=== PATIENT | female | born 1970 | race Caucasian/White ===

== ENCOUNTER → 2019-11-09 | Emergency (ER) | payer MEDICAID, OTHER ==
[~2019-11-09] MED LIST: CEPHALEXIN500 MG ORAL; Cephalexin 500mg cap ONE; LIDODERM700 M1 TOPIC; MIRTAZAPINE45 MG ORAL; NITROFURANTOIN100 M2 ORAL; ROBAXIN-750750 MG PO; VISTARIL50 MG ORAL
--- NOTE | 2019-11-10 06:21 | Emergency Room Report ---
History of Present Illness General Chief Complaint: skin infection Source: Patient Present Illness HPI Patient presents with complaints of redness to the left hip area patient reports that she injects heroin And noticed the area was becoming more red and tender to touch Denies any fevers or chills denies any cough denies any chest pain or shortness of breath denies any vomiting or diarrhea Allergies: Uncoded Allergies: SULFA (Allergy, Unknown, 09/06/19) Patient History Past Medical History: see triage record Reviewed Nursing Documentation: PMH: Agreed; PSxH: Agreed Review of Systems All Other Systems: negative except mentioned in HPI Physical Exam 98% RA Sp02 EP Interpretation: reviewed, normal General Appearance: well appearing, no apparent distress Head: normocephalic, atraumatic Eyes: bilateral eye PERRL, bilateral eye EOMI ENT: normal ENT inspection, hearing grossly normal, EOM grossly intact Neck: full range of motion, supple Respiratory: lungs clear, no retraction Cardiovascular #1: regular rate, rhythm Gastrointestinal: non tender, soft Genitourinary: no CVA tenderness Musculoskeletal: normal inspection Neurologic: alert, oriented x3 Skin: other - Area of approximately 1 x 2 cm erythema just above the left iliac crest consistent with early cellulitis no obvious fluctuance Lymphatic: no adenopathy Medical Decision Making Diagnostic Impression: Primary Impression: Abdominal wall cellulitis ER Course The area in question appears to be consistent with cellulitis other differential such as abscess or fistula are entertained,, Patient has antibiotics initiated And is stable for initial conservative outpatient trial Status: improved Disposition: HOME, SELF-CARE Condition: Improved Additional Instructions: Patient is provided with the discharge instructions notified to follow up with primary doctor in the next 2-3 days otherwise return to the er with any worsening symptoms. Please note that this report is being documented using [employer] technology. This can lead to erroneous entry secondary to incorrect interpretation by the dictating instrument. Pricila Ramos DO Nov 10, 2019 06:21
--- NOTE | 2019-11-10 06:50 | NUR ---
see downtime chart
== END | disposition home or self-care (01) ==
LOC: EMR 23:06
DX: L03.311 Cellulitis of abdominal wall (principal); Z88.2 Allergy status to sulfonamides
CPT/HCPCS: 99282

== ENCOUNTER 2019-11-14 18:27 | Emergency (ER) | payer OTHER ==
[~2019-11-14] VITALS: Ht 162.6 cm; Wt 49.9 kg
[~2019-11-14 18:27] MED LIST changes: -Cephalexin 500mg cap ONE
--- NOTE | 2019-11-14 18:27 | NUR ---
ED Nurse Note: Pt walke din for medication refill of antibiotic for her abscess on left upper buttock. Noted redness and bump but no drainage. AAOx4 and ambulatory.
[2019-11-14 18:33] VITALS: BP 140/78
[2019-11-14] MEDS ORDERED: CEPHALEXIN500 MG ORAL (18:45)
--- NOTE | 2019-11-14 18:45 | Emergency Room Report ---
History of Present Illness General Chief Complaint: Medication Refill Source: Patient Present Illness HPI 49-year-old female presents to the emergency department requesting medication change. Patient was seen here in the emergency department several days ago for abdominal cellulitis/abscess after skin popping. Patient states that the medication she was prescribed was not covered by her insurance and was too expensive for her to purchase. Patient denies fevers or chills. Patient denies significant progression of her symptoms. She reports 5/10 in severity tenderness, swelling and erythema to the left lateral aspect of the abdomen. She denies any other aggravating or relieving factors at this time. Allergies: Uncoded Allergies: SULFA (Allergy, Unknown, 09/06/19) COVID-19 Screening Contact w/high risk pt: No Recent Travel to affected area: No Experienced COVID-19 symptoms?: No Patient History Past Medical History: see triage record Past Surgical History: none Pertinent Family History: none Last Menstrual Period: 11/08/19 Now: No Reviewed Nursing Documentation: PMH: Agreed; PSxH: Agreed Nursing Documentation-PMH Past Medical History: No History, Except For Review of Systems All Other Systems: negative except mentioned in HPI Physical Exam Vital Signs Date Time Temp Pulse Resp B/P (MAP) Pulse Ox O2 Delivery O2 Flow Rate FiO2 11/14/19 18:33 98.1 73 16 140/78 95 Room Air Sp02 EP Interpretation: reviewed, normal General Appearance: no apparent distress, alert, GCS 15, non-toxic Head: normocephalic, atraumatic Eyes: bilateral eye normal inspection, bilateral eye PERRL ENT: hearing grossly normal, normal voice Neck: full range of motion Respiratory: lungs clear, normal breath sounds, speaking full sentences Cardiovascular #1: regular rate, rhythm Gastrointestinal: non tender, soft, other - 2cm area of erythema and induration on the left anterior abdomen. No palpable fluctuance. mild warmth. Musculoskeletal: normal range of motion, gait/station normal, non-tender Neurologic: alert, motor strength/tone normal, oriented x3, sensory intact, responsive, speech normal Psychiatric: judgement/insight normal Skin: other - 2cm area of erythema and induration on the left anterior abdomen. No palpable fluctuance. mild warmth. Lymphatic: no adenopathy Medical Decision Making PA Attestation Dr. Ramos is my supervising Physician whom patient management has been discussed with. Diagnostic Impression: Primary Impression: Encounter for medication refill Additional Impression: Abdominal wall cellulitis ER Course 49-year-old female presents to the emergency department requesting medication change. Patient was seen here in the emergency department several days ago for abdominal cellulitis/abscess after skin popping. Patient states that the medication she was prescribed was not covered by her insurance and was too expensive for her to purchase. Patient denies fevers or chills. Patient denies significant progression of her symptoms. She reports 5/10 in severity tenderness, swelling and erythema to the left lateral aspect of the abdomen. She denies any other aggravating or relieving factors at this time. Ddx considered but are not limited to: drug seeking, OD, Cellulitis, abscess, sepsis just to name a few. Vital signs: are WNL, pt. is afebrile H&PE are most consistent with need for medication change of antibiotic for her recently evaluated ST cellulitis. ORDERS: none required at this time, the diagnosis is clinical ED INTERVENTIONS: None required at this time. DISCHARGE: At this time pt. is stable for d/c to home. Will provide printed patient care instructions, and any necessary prescriptions. Care plan and follow up instructions have been discussed with the patient prior to discharge. Last Vital Signs Date Time Temp Pulse Resp B/P (MAP) Pulse Ox O2 Delivery O2 Flow Rate FiO2 11/14/19 18:33 98.1 73 16 140/78 (98) 95 Room Air Disposition: HOME, SELF-CARE Condition: Stable Scripts Cephalexin* (KEFLEX*) 500 Mg Capsule 500 MG ORAL EVERY 12 HOURS, #14 CAP 0 Refills Prov: Jessica Hinojosa 11/14/19 Patient Instructions: Medicine Refill at the Emergency Department Additional Instructions: Take medications as directed. Follow up with a Primary Care Provider in 3-5 days, even if your symptoms have resolved. Return sooner to ED if new symptoms occur, or current symptoms become worse. - Please note that this Emergency Department Report was dictated using [employer] educational radio technology software, occasionally this can lead to erroneous entry secondary to interpretation by the dictation equipment. Jessica Hinojosa Nov 14, 2019 18:45
[2019-11-14 18:53] VITALS: BP 138/80
--- NOTE | 2019-11-14 18:53 | NUR ---
ER DISCHARGE NOTE: Patient is cleared to be discharged per PA, pt is aox4, on room air, with stable vital signs. pt was given dc and prescription instructions, pt was able to verbalize understanding, pt id band removed. pt is able to ambulate with steady gait. pt took all belongings.
== END 2019-11-14 18:53 | disposition home or self-care (01) ==
LOC: EMR 18:45
DX: L03.311 Cellulitis of abdominal wall (principal); Z76.0 Encounter for issue of repeat prescription; Z88.2 Allergy status to sulfonamides
CPT/HCPCS: 99282